=== PATIENT | female | born 1980 | race Caucasian/White ===

== ENCOUNTER → 2017-08-02 | Outpatient (CLI) | payer OTHER ==
--- NOTE | 2017-08-02 10:07 | Diagnostic Imaging Report ---
PROCEDURE: CT CHEST WITHOUT CONTRAST CT scan of the chest WITHOUT intravenous contrast, using standard protocol. TECHNIQUE: The chest was scanned utilizing a multidetector helical scanner from the apex to the level of the adrenal glands. No IV contrast was administered because of referring physician request. Coronal and sagittal multiplanar reformations were obtained. COMPARISON: None. INDICATIONS: SHORTNESS OF BREATH, CHEST TIGHTNESS FINDINGS: Lines/tubes: None. Lungs and Airways: There is mild right middle lobe bronchiectasis and paramediastinal linear scar likely postinfectious. The lungs are otherwise well inflated and without consolidation, mass lesion, honeycombing, or fibrotic change. The trachea, mainstem bronchi, and central lobar and segmental bronchi are patent. Pleura: No pleural effusion or pneumothorax. Heart and mediastinum: The visualized portions of the thyroid gland appear normal. No axillary, hilar, or mediastinal lymphadenopathy. The pulmonary outflow tract is of normal caliber. No ectasia or aneurysmal dilatation of the thoracic aorta. Great vessel origins are of normal caliber and configuration. No pericardial effusion. Soft tissues: No focal soft tissue abnormalities. Abdomen: The visualized portions of the liver, spleen, pancreas, and adrenal glands are unremarkable. Partially visualized 1.9 cm round structure in the left kidney, average internal attenuation of 15 Hounsfield units. Bones: No osseous destructive lesions. IMPRESSION: Minimal right middle lobe bronchiectasis and linear scar, presumably the sequela of prior infection. Otherwise no intrathoracic CT abnormalities. Probable simple left renal cyst, partially visualized. Renal ultrasound is suggested for confirmation. Dictated by: Ramiro Hubbard M.D. on 08/02/2017 at 10:16 Electronically approved by: Ramiro Hubbard M.D. on 08/02/2017 at 10:16
--- NOTE | 2017-08-02 10:08 | Diagnostic Imaging Report ---
PROCEDURE: X-RAY CHEST, TWO VIEWS COMPARISON: None. INDICATIONS: CHEST TIGHTNESS, PRESSURE FINDINGS: LUNGS: No consolidations or edema. PLEURA: No effusions or pneumothorax. HEART \T\ MEDIASTINUM: The heart is within normal size-limits. BONES \T\ SOFT TISSUES: No acute findings. CONCLUSION: No acute thoracic abnormality. Dictated by: Ramiro Hubbard M.D. on 08/02/2017 at 10:17 Electronically approved by: Ramiro Hubbard M.D. on 08/02/2017 at 10:17
== END ==
LOC: CT 09:09
PROVIDERS: ATTEND Internal Medicine
DX: R06.02 Shortness of breath (principal); R07.89 Other chest pain
CPT/HCPCS: 71020; 71250